=== PATIENT | female | born 1995 | race Hispanic/Latino ===

== ENCOUNTER 2022-06-23 15:48 | Outpatient (CLI) | payer BC, OTHER | END 2022-06-23 15:49 | disposition home or self-care (01) | LOC: DTY/OP 15:48 | PROVIDERS: ATTEND Specialist | DX: E66.01 Morbid (severe) obesity due to excess calories (principal) | CPT/HCPCS: 97802 ==

== ENCOUNTER 2022-07-24 16:04 | Emergency (ER) | payer BC ==
[2022-07-24] MEDS ORDERED: Bacitracin 1 PK ONE (18:17)
== END 2022-07-24 18:31 | disposition home or self-care (01) ==
LOC: ERS 16:04
DX: S61.452A Open bite of left hand, initial encounter (principal); I10 Essential (primary) hypertension; E78.5 Hyperlipidemia, unspecified; E11.9 Type 2 diabetes mellitus without complications; W54.0XXA Bitten by dog, initial encounter
CPT/HCPCS: 99282

== ENCOUNTER 2022-08-29 14:30 | Inpatient (IN) | payer BC ==
[2022-09-06] MEDS ORDERED: CEFAZOLIN 2 GM VIAL ONE (07:34)
[2022-09-06] MEDS ORDERED: Sodium Chloride 0.9% 100 ML ONE (07:34)
[2022-09-06] MEDS ORDERED: Ketorolac Tromethamine 30 MG/ML VIAL ONE ×2 (07:34→09:47)
[2022-09-06] MEDS ORDERED: Acetaminophen 500 MG TAB ONE (07:34)
[2022-09-06] MEDS ORDERED: Heparin 5,000 UNITS/ML VIAL ONE (07:34)
[2022-09-06] MEDS ORDERED: Bupivacaine/Epinephrine 0.25% 30 ML VIAL ONE ×2 (08:01→09:47)
[2022-09-06] MEDS ORDERED: fentaNYL PF 100 MCG/2 ML SYRINGE ONE (09:22)
[2022-09-06] MEDS ORDERED: SUGAMMADEX SODIUM 200 MG/2 ML VIAL ONE (09:30)
[2022-09-06] MEDS ORDERED: Rocuronium Bromide 10 MG/ML (10ML VIAL) ONE (09:47)
[2022-09-06] MEDS ORDERED: Lidocaine 1% PF 5 ML VIAL ONE (09:47)
[2022-09-06] MEDS ORDERED: Dexamethasone 20 MG/5 ML VIAL ONE (09:47)
[2022-09-06] MEDS ORDERED: Ondansetron PF 4 MG/2 ML Vial ONE ×2 (09:47→14:14)
[2022-09-06] MEDS ORDERED: PROPOFOL 200 MG/20 ML VIAL ONE (09:47)
[2022-09-06] MEDS ORDERED: Scopolamine 1.5 mg/72 hour Patch ONE (10:25)
[2022-09-06] MEDS ORDERED: Ondansetron HCl/PF 4 MG/2 ML Vial IVP PRN (10:53)
[2022-09-06] MEDS ORDERED: HYDROmorphone 2 MG/ML VIAL SLOW IVP PRN (10:53)
[2022-09-06] MEDS ORDERED: Promethazine HCl 25 MG/ML VIAL IM PRN ×2 (10:53→11:50)
[2022-09-06] MEDS ORDERED: Meperidine HCl/PF 25 MG/ML VIAL SLOW IVP PRN (10:53)
[2022-09-06] MEDS ORDERED: HYDROmorphone 2 MG/ML VIAL ONE (11:43)
[2022-09-06] MEDS ORDERED: Glucagon 1 MG/ML KIT IM PRN (11:50)
[2022-09-06] MEDS ORDERED: Dextrose 50% Abboject 50 ML SYRINGE SLOW IVP PRN (11:50)
[2022-09-06] MEDS ORDERED: Dextrose 5% in Water 1,000 ML IV PRN (11:50)
[2022-09-06] MEDS ORDERED: hydrALAZINE 20 MG/ML VIAL SLOW IVP PRN (11:50)
[2022-09-06] MEDS ORDERED: Insulin Regular 300 UNITS/3 ML VIAL SC PRN (11:50)
[2022-09-06] MEDS ORDERED: Morphine 4 MG/ML VIAL SLOW IVP PRN (11:50)
[2022-09-06] MEDS ORDERED: Ipratropium/Albuterol 3 ML NEB NEB PRN (11:50)
[2022-09-06] MEDS ORDERED: diphenhydrAMINE 50 MG/ML VIAL IVP PRN (11:50)
[2022-09-06] MEDS ORDERED: Promethazine HCl 25 MG/ML VIAL ONE (12:13)
[2022-09-06] MEDS ORDERED: fentaNYL 50 mcg/mL 1 mL Vial ONE ×2 (12:23→14:02)
[2022-09-06] MEDS: Ketorolac Tromethamine 30 MG/ML VIAL IVP SCH ×3 (14:58→23:24)
[2022-09-06] MEDS ORDERED: Morphine 4 MG/ML VIAL ONE (15:24)
[2022-09-06] MEDS: Hydrocodone-Acetamin 15 ML UDCUP PO PRN ×2 (17:11→21:28)
[2022-09-06] MEDS: 1/2 NS w/KCL 20 mEq 1,000 ML IV SCH ×2 (17:14→21:42)
[2022-09-06 19:33] VITALS: BMI 50.8
[2022-09-07] MEDS: Morphine 2 MG/ML VIAL SLOW IVP PRN ×2 (01:05→05:47)
[2022-09-07] MEDS: Ondansetron PF 4 MG/2 ML Vial IVP PRN ×2 (01:05→14:47)
[2022-09-07] MEDS: 1/2 NS w/KCL 20 mEq 1,000 ML IV SCH ×2 (01:10→12:44)
[2022-09-07] MEDS: Ketorolac Tromethamine 30 MG/ML VIAL IVP SCH ×2 (05:47→12:37)
[2022-09-07 06:16] LABS: #Monocytes 1.3 thou/uL (0.11-0.59); #Neutrophils 13.4 thou/uL (1.40-6.50); %Basophils 0.2 % (0.0-1.0); %Lymphocytes 12.3 % (21.0-51.0); %Monocytes 7.5 % (0.0-10.0); %Neutrophils 79.6 % (42.0-75.0); Hemoglobin 13.8 g/dL (12.0-16.0); Mean Corpuscular HGB CONC 32.9 g/dL (32.0-36.0); Mean Corpuscular Hemoglobin 28.2 pg (27.0-31.0); Mean Corpuscular Volume 85.7 fl (78.0-98.0); Mean Platelet Volume 10.4 fL (7.4-10.4); Platelet Count 343 10x3/uL (130-400); RBC Distribution Width 14.6 % (11.5-14.5); White Blood Cell (WBC) Count 16.8 10x3/uL (4.8-10.8)
[2022-09-07 06:37] LABS: Anion Gap 12 mmol/L (10-20); BUN (Urea Nitrogen) 5 mg/dL (7.0-18.7); Calc. Creatinine Clearance 354 mL/min (70-130); Calcium 8.9 mg/dL (7.8-10.44); Carbon Dioxide 19 mmol/L (22-29); Chloride 108 mmol/L (98-107); Estimated GFR 126; Glucose 93 mg/dL (70-105); Sodium 135 mmol/L (136-145)
[2022-09-07] MEDS: Hydrocodone-Acetamin 15 ML UDCUP PO PRN (08:54)
[2022-09-07] MEDS ORDERED: Pantoprazole 40 MG VIAL IVP SCH (09:00)
[2022-09-07] MEDS ORDERED: Atorvastatin Calcium 10 MG TAB PO SCH (09:00)
[2022-09-07] MEDS ORDERED: Lisinopril 10 MG TAB PO SCH (09:00)
[2022-09-07 11:16] VITALS: TEMP 98.2
[2022-09-07 15:27] VITALS: BP 135/79
== END 2022-09-07 15:43 | disposition home or self-care (01) | DRG 621 ==
LOC: SURG A 09-06 07:13
PROVIDERS: ADMIT Specialist; ATTEND Specialist
PROC: 0DB64Z3 Excision of Stomach, Percutaneous Endoscopic Approach, Vertical (ICD-10-PCS; principal; 2022-09-06)
DX: E66.01 Morbid (severe) obesity due to excess calories (principal); Z68.43 Body mass index [BMI] 50.0-59.9, adult; E11.9 Type 2 diabetes mellitus without complications; I10 Essential (primary) hypertension
CPT/HCPCS: 36415; 36416; 80048; 85025; 88307; A4649; C9113; J1100; J1170; J1644; J1650; J1885; J2270; J2272; J2405; J2550; J2704; J3010; J3480; J3490

== ENCOUNTER 2024-11-11 10:36 | Emergency (ER) | payer BC ==
[2024-11-11 11:06] LABS: #Basophils 0.10 10x3/uL (0.0-0.2); #Eosinophils 0.21 10x3/uL (0.0-0.7); #Monocytes 0.62 10x3/uL (0.11-0.59); #Neutrophils 7.97 10x3/uL (1.40-6.50); %Basophils 0.8 % (0.0-1.0); %Eosinophils 1.6 % (0.0-10.0); %Lymphocytes 30.1 % (21.0-51.0); %Monocytes 4.7 % (0.0-10.0); %Neutrophils 60.2 % (42.0-75.0); Hematocrit 38.4 % (36.0-47.0); Hemoglobin 12.5 g/dL (12.0-16.0); Mean Corpuscular Hemoglobin 29.3 pg (27.0-31.0); Mean Corpuscular Volume 90.1 fL (78.0-98.0); Platelet Count 345 10x3/uL (130-400); Red Blood Cell (RBC) Count 4.26 mill/uL (4.20-5.40); White Blood Cell (WBC) Count 13.21 10x3/uL (4.8-10.8)
[2024-11-11 11:21] LABS: BHCG - Serum Negative (NEGATIVE); Pregs Control Background? CLEAR/WHITE (CLR/WHITE); Pregs Control Bar Appear? YES (CONTROL BAR)
[2024-11-11 11:28] LABS: ALT (SGPT) 29 U/L (Less than 34); AST (SGOT) 24 U/L (11-34); Albumin 2.9 g/dL (3.1-4.5); Alkaline Phosphatase 88 U/L (40-110); Anion Gap 12 mmol/L (10-20); BUN (Urea Nitrogen) 14 mg/dL (7.0-18.7); Bilirubin, Total 0.7 mg/dL (0.3-1.2); Calc. Creatinine Clearance 0 mL/min (70-130); Calcium 8.2 mg/dL (7.8-10.44); Carbon Dioxide 23 mmol/L (22-29); Chloride 109 mmol/L (98-107); Globulin 3.4 g/dL (2.4-3.5); Glucose 102 mg/dL (70-105); Potassium 4.3 mmol/L (3.5-5.1); Sodium 140 mmol/L (136-145)
== END 2024-11-11 13:28 | disposition home or self-care (01) ==
LOC: ERS 10:36
DX: L03.116 Cellulitis of left lower limb (principal); E11.9 Type 2 diabetes mellitus without complications; I10 Essential (primary) hypertension; E78.5 Hyperlipidemia, unspecified
CPT/HCPCS: 36415; 80053; 84703; 85025